=== PATIENT | male | born 1990 | race Caucasian/White ===

== ENCOUNTER 2021-09-02 11:01 | Outpatient (REF) | payer BC, SELFPAY | END 2021-09-02 11:02 | disposition home or self-care (01) | LOC: HO.BBR 11:01 | PROVIDERS: Visit Provider Internal Medicine | DX: Z13.89 Encounter for screening for other disorder (principal) ==

== ENCOUNTER 2024-03-28 11:18 | Outpatient (REF) | payer BC, SELFPAY ==
--- OUTSIDE RECORDS SUMMARY | 2024-03-28 12:00 | XMS_ITS | Continuity of Care Document ---
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 It does not include entries that were removed or entered in error. Problem Status Onset Date Problem Type Date of Resolution Comme nts Source upper respiratory infection Active Condition DoD visit for: services physical Active Condition DoD Allergies, Adverse Reactions, Alerts Combined list of allergies from Department of Defense and Veterans Affairs facilities. It does not include entries that were removed or entered in error. Substance Category Reaction Severity Reaction type Status Date Reported Comments Source No Known Allergies Drug allergy (disorder) active 2007 [facility] [address] Immunizations Combined list of available immunizations from the Department of Defense and Veterans Affairs facilities. Immunization Series Date Given Administered By Site Reaction Lot Number CVX Code Drug Manager Mail Status Comments Source influenza, injectable, quadrivalent- pf 2021 [id number] GlaxoSmithKli ne complet ed influenza , injectabl e, quadrival ent-pf 11/22/21 Given Ambulat ory Pharmac y influenza virus vaccine, inactivated 2020 [id number] Seqirus complet ed influenza virus vaccine, inactivat ed 12/14/20 Given Ambulat ory Pharmac y COVID Vaccine Moderna 2020 [id number] 207 complet ed COVID Vaccine Moderna 04/13/20 Given Ambulat ory Pharmac y COVID Vaccine Moderna 2020 [id number] 207 complet ed COVID Vaccine Moderna 03/15/20 Given Ambulat ory Pharmac y influenza, injectable, quadrivalent- pf 2019 [id number] 150 Seqirus complet ed influenza , injectabl e, quadrival ent-pf 12/16/19 Given Ambulat ory Pharmac y influenza, injectable, quadrivalent- pf 2018 [id number] 150 Seqirus complet ed influenza , injectabl e, quadrival ent-pf 01/25/19 Given Ambulat ory Pharmac y influenza, injectable, quadrivalent- pf 2017 [id number] Seqirus complet ed influenza , injectabl e, quadrival ent-pf 12/11/17 Given Ambulat ory Pharmac y tetanus, diphtheria, acellular pertu is 2017 [id number] 115 sanofi pasteur complet ed tetanus, diphtheri a, acellular pertussis 08/21/17 Given Ambulat ory Pharmac y influenza, seasonal, injectable 2017 [id number] 141 Seqirus complet ed influenza , seasonal, injectabl e 02/11/17 Given Ambulat ory Pharmac y influenza, seasonal, injectable-pf 2015 [id number] 140 Seqirus complet ed influenza , seasonal, injectabl e-pf 12/14/15 Given Ambulat ory Pharmac y influenza, seasonal, injectable-pf 2014 [id number] 140 CSL Behring complet ed influenza , seasonal, injectabl e-pf 12/14/14 Given Ambulat ory Pharmac y influenza, seasonal, injectable 2013 [id number] 141 CSL Behring complet ed influenza , seasonal, injectabl e 10/13/13 Given Ambulat ory Pharmac y influenza, seasonal, injectable 2012 [id number] 141 complet ed influenza , seasonal, injectabl e 01/14/13 Given Ambulat ory Pharmac y influenza, seasonal, injectable-pf 2011 [id number] 140 CSL Behring complet ed influenza , seasonal, injectabl e-pf 11/21/11 Given Ambulat ory Pharmac y influenza, seasonal, injectable-pf 2011 [id number] 140 CSL Behring complet ed influenza , seasonal, injectabl e-pf 02/18/11 Given Ambulat ory Pharmac y influenza virus vaccine, live 2009 [id number] Xylitol [employer] comple t ed influenza virus vaccine, live 12/14/09 Given Ambulat ory Pharmac y Novel influenza-H1N 1-09, injectable 2008 127 complet ed Novel influenza -R1L0-81, injectabl e 01/22/09 Given Ambulat ory Pharmac y hepatitis A-hepatitis B vaccine 2008 [id number] 3AA [facility] A-hepatit is B vaccine 03/16/08 Given Ambulat ory Pharmac y hepatitis A adult vaccine 2008 [id number] 1A 52 GlaxoSmithKli ne complet ed hepatitis A adult vaccine 03/16/08 Given Ambulat ory Pharmac y hepatitis A-hepatitis B vaccine 2008 [id number] 3AA 104 GlaxoSmithKli ne complet ed hepatitis A-hepatit is B vaccine 03/16/08 Given Ambulat ory Pharmac y influenza virus vaccine,split 2007 [id number] 2AA 15 GlaxoSmithKli ne complet ed influenza virus vaccine,s plit 01/14/08 Given Ambulat ory Pharmac y hepatitis A-hepatitis B vaccine 2007 [id number] 3AA 104 GlaxoSmithKli ne complet ed hepatitis A-hepatit is B vaccine 10/03/07 Given Ambulat ory Pharmac y hepatitis A-hepatitis B vaccine 2007 [id number] 3AA 104 GlaxoSmithKli ne complet ed hepatitis A-hepatit is B vaccine 10/03/07 Given Ambulat ory Pharmac y measles/mumps /rubella virus vaccine 2007 [id number] Nav[employer]is [employer] complet ed measles/m umps/rube lla virus vaccine 08/30/07 Given Ambulat ory Pharmac y hepatitis A-hepatitis B vaccine 2007 [id number] 3AA 104 GlaxoSmithKli ne complet ed hepatitis A-hepatit is B vaccine 08/30/07 Given Ambulat ory Pharmac y tuberculin purified protein derivative 2007 [id number] sanofi pasteur complet ed tuberculi n purified protein derivativ e 08/27/07 Given Ambulat ory Pharmac y meningococcal A,C,Y,W-135 (MCV4P) 2007 [id number] 114 sanofi pasteur complet ed meningoco ccal A,C,Y,W-1 35 (MCV4P) 08/24/07 Given Ambulat ory Pharmac y poliovirus vaccine, inactivated 2007 [id number] 10 sanofi pasteur complet ed polioviru s vaccine, inactivat ed 08/24/07 Given Ambulat ory Pharmac y tetanus, diphtheria, acellular pertu is 2007 [id number] 115 sanofi pasteur complet ed tetanus, diphtheri a, acellular pertussis 08/24/07 Given Ambulat ory Pharmac y Results Combined list of recent chemistry, hematology and other laboratory results from Department of Defense and Veterans Affairs, ranging from 15 months to all on record, depending upon the facility. Order Name Results Value Reference Range Date Interpretation Specimen Comments Source Infectiou s Disease HIV-1/O/2 Non-Reac tive 1 ( 4 9:00 AM) 12/07 N Interpretiv e Data: INTERPRETAT ION: This method is a screening procedure for the detection of HIV p24 Antigen and Antibodies to HIV-1, including Group O, and/or HIV-2. NON-REACTIV E: HIV-1 antigen and HIV-1 / HIV-2 antibodies were not detected. No laboratory evidence of HIV infection. A negative test result does not exclude the possibility of exposure to or infection with HIV. HIV antibodies and/or p24 antigen may be undetectabl e in some stages of the infection and in some clinical conditions. If acute HIV infection is suspected, consider submitting another specimen to a reference laboratory for HIV-1 RNA. SCREEN REACTIVE - CONFIRMATIO N TO FOLLOW: Possible presence of HIV-1antibo dies, HIV-2 antibodies and/or HIV-1 p24 antigen. Specimen will reflex to the confirmatio n testing that fulfills the Center for Disease Control and Prevention' s HIV diagnostic algorithm. Refer to [facility] Lab Guide for additional information : [email or web address] x Testing performed by José Miguel francisco [id number] [facility] Miscellan eous Sendouts Repository Sample Received ( 4 9:00 AM) 12/07 N [id number] Encounters Combined list of: 1) Encounters from Department of Veterans Affairs facilities going backup to the last 18 months, not all VA inpatient encounters are included; 2) Encounters from the Department of Defense facilities going backup to 280 months. Location Location Details Encounter Type Encounter Number Reason For Visit Attending Provider ADM Date DC Date Status Disposition Source [facility] [place] [address](Opt ometry Clinic [facility]) OUTPATIENT [id number] JOCE HILLMAN 08/28 Released w/o Limitations [facility] [place] [place] [address](O ptomet[facility]) [facility] [place] [address]([facility]) OUTPATIENT [id number] 1420- COLD SYMPTOM S (324/53 5) BELIA GUZMAN 09/14 Released with Work/Duty Limitations [facility] [place] [address] [facility] d) [id number] AMDS Care Not Rendered [id number] 11/11 Discharge Disposition: Home or Self Care [id number] AMDS [id number] AMDS Care Not Rendered [id number] 12/09 Discharge Disposition: Home or Self Care 8344R-4 39 AMDS [id number] AMDS Outpatient [id number] AMADEO CORREIA 12/09 Discharge Disposition: Home or Self Care 8344R-4 39 AMDS [id number] AMDS Between Visit [id number] 03/07 Discharge Disposition: Home or Self Care 8344R-4 39 AMDS [id number] AMDS Dental [id number] DUNG MYDOAN 03/10 Discharge Disposition: Home or Self Care 8344R-4 39 AMDS Procedures Combined list of: 1) Procedures from Department of Veterans Affairs facilities going back up to thelast 18 months, not all VA non-surgical procedures are included; 2) All procedures from the Department of Defense facilities. Procedure Procedure Type Code Date Perfomer Comments Sourc e No data available for this section Ambulatory Pharmacy Repair And Refitting Gla es (Not For Aphakia) Repair And Refitting Glasses (Not For Aphakia) [id number] 08/29/2007 JOCE HILLMAN [facility] Services Fitting Monofocal Except For Aphakia Spectacles Services Fitting Monofocal Except For Aphakia 36537 08/29/2007 JOCE HILLMAN [facility] Visual Function Screening Visual Function Screening [id number] 08/29/2007 JOCE HILLMAN [facility] FITTING OF SPECTACLES, EXCEPT FOR APHAKIA; MONOFOCAL 08/29/2007 DoD Social History Combined list of available smoking, tobacco, and other social history from Department of Defense and Veterans Affairs facilities. Social History Type Response Date Comment [facility] e Male 02/18/2022 Ambulatory Pha rmacy Sexual Orientation Ambula tory Pharmacy Gender identity Ambulator y Pharmacy This section is an empty soc ial history section. DoD Assessment and Plan Combined list of future care activities from Department of Defense and Veterans Affairs facilities (e.g., assessment and plan notes, appointments, orders, and referrals). Additional future care activities may be listed in the Plan of Care section. Result Assessment and Plan Date Source Assessment and Plan No data available for this section 03/28/2024 Ambulatory Pharmacy Functional Status Combined list of recent functional and cognitive assessments recorded at [facility] Defense [facility] ([facility]VA Functional Walsh Measurement (FIM) Scale: 1 = Total Assistance (Subject = 0% +), 2 = Maximal Assistance (Subject = 25% +), 3 = Moderate Assistance (Subject = 50% +), 4 = Minimal Assistance (Subject = 75% +), 5 = Supervision, 6 = Modified Walsh (Device), 7 = Complete Walsh (Timely, Safely). Assessment Date/Time Source Assessment Type Assessment Skill Assessment Score Assessment Details No data available for this section
--- OUTSIDE RECORDS SUMMARY | 2024-03-28 12:01 | XMS_ITS | Encounter Summary ---
Author Organization [facility] Address [address] [place] [address] Care Team Providers Care Digital Media Strategist Name Role Phone Yusuf Thakkar MD Primary Care Provider [phone] Reason for Referral * Imaging (Routine) - Pending Review Specialty Diagnoses / Procedures Referred By Tiffany farley Referred To Contact Radiology Diagnoses Hereditary hemochromatosis (CMS/HCC) Procedures MR Abdomen wo and w Contrast Juan David Mantilla MD [address] [place] [address] Phone: tel: fax: [address] [address] Phone: tel: Referral ID Status Reason Start Date Expiration Date V isits Requested Visits Authorized [id number] Pending Review 03/20/2024 03/20/2025 1 1 Reason for Visit * Reason Comments Follow-up Encounter Details Date Type Department Care Team (Latest Contact Info) Description 03/20/2024 11:00 AM EST Office Visit [facility] Hematology Oncology [address] [place] [phone] Juan David Mantilla MD [address] [place] [address] Hereditary hemochromatosis (CMS/HCC) (Primary Dx); Anxiety; Postural dizziness with presyncope Social History Tobacco Use Types Packs/Day Years Used Date Smoking Tobacco: Never Assessed Alcohol Use Standard Drinks/Week Comments Yes 0 (1 standard drink = 0.6 oz pur e alcohol) Sex and Gender Information Value Date Recorded Sex Assigned at Not on file Legal Sex Male 6:59 AM EST Gender Identity Not on file Sexual Orientation Not on file documented as of this encounter Last Filed Vital Signs Vital Sign Reading Time Taken Comments Blood Pressure 141/82 03/20/2024 11:08 AM EST Pulse 70 03/20/2024 11:08 AM EST Temperature 36.1 ??C (97 ??F) 03/20/2024 11:08 AM EST Respiratory Rate - - Oxygen Saturation 99% 03/20/2024 11:08 AM EST Inhaled Oxygen Concentration - - Weight 98 kg (216 lb) 03/20/2024 11:08 AM EST Height 170.2 cm (5' 7 ) 03/20/2024 11:08 AM EST Body Mass Index 33.83 03/20/2024 11:08 AM EST documented in this encounter Progress Notes * Subramony Subshashi-MD Macrina - 03/20/2024 11:00 AM EST CHIEF COMPLAINT: Chief Complaint Patient presents with Follow-up Hereditary hemochromatosis, homozygous C282Y, test results 07/24/2015 in the [facility] system. IDENTIFIER:Bruce Mccarty is a 33 y.o. male. HPI: The patient returns for follow up of Hereditary hemochromatosis, homozygous C282Y, For details of initial diagnosis and follow up until DEC 09, 2023- please refer to notes from prior [facility] EMR last note dated 08/19/2021 Patient was lost to follow-up during the last 2 years, due to his move from home, etc. 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 He had lab work performed which showed his ferritin at 378, and iron saturation 86%. At this time he does not have a PCP. He used to do phlebotomy at [place]. He once had a presyncopal episode and thereafter has half unit blood removed to 250 cc. He agrees to have lab work and resuming phlebotomy. Will plan due to 1 phlebotomy with a hemoglobin limit of 13--below 13, he will hold off phlebotomy The following is copied, reviewed and edited Cancer Staging No matching staging information was found for the patient. Oncology History No history exists. 2015 -- Mr Mccarty is a 24 -year-old gentleman who is here for evaluation of her elevated ferritin level and transaminitis. He carries a family history of hemachromatosis, his biological father being diagnosed with the same and quite ill with the disease. However he is not aware of the genetic status, biochemical evidence or treatment employed. His brother is also currently undergoing tests for the same. Interms of symptoms, he has some some stiffness in his small joints and chronic pain and bilateral knee and lower back related to injuries. He denies any skin color change he denies some shortness of breath palpitations or chest pressure he has not noticed any nausea or anorexia. I recommended phlebotomy to initiate removal of 450 mL of blood The following is copied and reviewed every 2 weeks for at least 6 cycles and recheck the CBC, iron level, ferritin afterward. Often after a period of induction, patients are able to maintain ferritin levels below 100 with phlebotomy every few months. I will refer the patient to blood bank for phlebotomies. I discussed with the patient regarding maintaining a normal diet, avoiding iron supplements. I also cautioned him against using partly cooked seafood as infections with vibrio have been described in patients with hemochromatosis who used uncooked or partly cooked seafood. He denies any risk factors for hepatitis C. 05/2016 -- Mr. Mccarty seems to be doing quite well clinically, continuing on twice monthly phlebotomies for hereditary hemochromatosis. Since October of last year, when his ferritin was in the 500s, he is continued on every 2 week phlebotomy. He missed the procedure for about 6 weeks when he was stationed in [place] state. 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 He has not noticed any worsening of shortness of breath. He denies any abdominal pain, early satiety or loss of appetite. He uses alcohol intermittently, socially. He is due for lab work and review of his ferritin and iron studies. He does not have any evidence of liver cirrhosis clinically. I discussed with the patient the need to moderate alcohol consumption. He is also attempting to lose weight and increase exercise. I will check his CBC, ferritin and iron studies. Based on the results, duration and interval of phlebotomy will be adjusted, goal ferritin will be at 50. He may need up to 4-6 phlebotomies per year once he reaches a stable state. If he has any iron deficiency, anemia or low ferritin, phlebotomy may be temporarily held. He will have lab work performed today and at 3 month intervals and return to clinic for follow-up in one year. 06/2017-- The patient had 4 phlebotomies during last year. One in the fall was delayed due to his travel withthe . This possibly explains the slight increase in ferritin and iron saturation at that time. He feels well without any new symptoms. Occasional panic/anxiety issues, working with his PCP regarding controlling it. PLAN-- 26-year-old man with history hemochromatosis, homozygous mutation, he will continue on phlebotomy every 3 months. 500 mL of blood to be removed each time. To hold phlebotomy if hemoglobin less than 11.5. Ferritin goal is 50- 100, which patient has been able to maintain mostly during the last year. He'll have lab work evaluation every 6 months and return to this clinic for annual follow-up. As hisinitial liver function tests and ultrasound were normal, no indication to have imaging monitoring repeatedly. 01/2020 -- Patient reports that he is feeling well. He was last seen in clinic in September 2018. He has not beendoing any phlebotomy for the last year. He wishes to keep his ferritin low, and also the saturationin the 25% range He is due for lab work, per his request, request to be sent over to [facility] lab Patient also had a syncopal event with full dose phlebotomy, therefore request that to 50 mL blood be removed if needed He may need treatment 3-4 times a year, if his ferritin increases to greater than 100 Goal would be to avoid anemia and another syncopal episode He has some joint pain, but reports that none are new 08/2021- Patient was last seen in clinic by telemetry audio visit in January 2020. He was advised to do labwork, but he was not able to. He has been off phlebotomy for more than 2 years. Patient reports that he is feeling well. He has gained some weight. Continues to work at the [employer]. Admits to alcohol use, but no smoking. Reviewed regarding risk of liver injury and hemochromatosis, along with alcohol use. Reviewed regarding the need for periodic lab work, and phlebotomy. He agrees He prefers to have half volume phlebotomy 250 mL removed each time, as he had an episode of syncopeand he researched some patient group advice. ROS: GENERAL: No malaise, significant weight loss or fever NECK: No lumps, goiter, pain or significant neck swelling RESPIRATORY: No cough, wheezing or shortness of breath CARDIOVASCULAR: No chest pain, leg swelling or palpitations GI: No abdominal discomfort, blood in stools or black stools MUSCULOSKELETAL: No joint pain or swelling, back pain, or muscle pain. HEMATOLOGY/LYMPHOLOGY No prolonged bleeding, easy bruisability or swollen nodes Other Systems review is non contributory PAST MEDICAL HISTORY: Active Ambulatory Problems Diagnosis Date Noted Anxiety 11/24/2016 Elevated CK 04/20/2018 Hereditary hemochromatosis (CMS/HCC) 10/23/2015 Knee pain, bilateral 03/09/2024 Low back pain 03/09/2024 Resolved Ambulatory Problems Diagnosis Date Noted No Resolved Ambulatory Problems No Additional Past Medical History SOCIAL HISTORY: Social History Tobacco Use Smoking status: Not on file Smokeless tobacco: Not on file Substance Use Topics Alcohol use: Yes FAMILY HISTORY: Family History Problem Relation Name Age of Onset Hypertension Mother Other (Other: hematochromatosis) Father Pt is adopted, biological father has severe disease Current Outpatient Medications: cetirizine (ZyrTEC) 10 mg tablet, Take 1 tablet (10 mg total) by mouth 1 (one) time each day., Disp: , Rfl: semaglutide (OZEMPIC) 0.25 mg or 0.5 mg(2 mg/1.5 mL) injection pen, Inject 0.25 mg under the skin every 7 (seven) days., Disp: , Rfl: No Known Allergies PHYSICAL EXAM: Visit Vitals BP (!) 141/82 (BP Location: Right arm, Patient Position: Sitting, BP Cuff Size: Large adult) Pulse 70 Temp 36.1 ??C (97 ??F) (Temporal) Ht 1.702 m (67 ) Wt 98 kg (216 lb) SpO2 99% BMI 33.83 kg/m?? Smoking Status Never Assessed BSA 2.09 m?? APPEARANCE: Alert and in no acute distress EYES: PERRL, conjunctiva pink and sclera are Normal without icterus ORAL CAVITY: No erythema or exudates NECK: Neck supple, no adenopathy, HEART: RRR with normal S1 and S2, no murmurs, no gallops, no JVD appreciated LUNG: clear to auscultation bilaterally Percussion note normal LYMPH NODES: No palpable superficial adenopathy ABDOMEN: Bowel sounds normoactive, no bruits, soft, non-tender, without organomegaly or palpable masses EXTREMITIES: Extremities warm and well perfused without clubbing, cyanosis, rash or edema NEURO: Oriented X 3, no focal weakness; sensation is normal LABS: Review of Lab results , interpreted Lab Results Component Value Date WBC 5.7 03/12/2024 HGB 16.3 03/12/2024 HCT 47.5 03/12/2024 MCV 94.1 03/12/2024 PLT 238 03/12/2024 Lab Results Component Value Date NA 137 03/12/2024 K 4.0 03/12/2024 CL 103 03/12/2024 CO2 31 03/12/2024 GLUCOSE 92 03/12/2024 BUN 13 03/12/2024 CREATININE 0.88 03/12/2024 CALCIUM 9.7 03/12/2024 PROT 6.9 03/12/2024 ALBUMIN 4.0 03/12/2024 BILITOT 0.7 03/12/2024 AST 38 03/12/2024 ALT 91 (H) 03/12/2024 ALKPHOS 71 03/12/2024 EGFR 115 03/12/2024 Review of Imaging, interpreted No image results found. Review of External Documentation Tests ordered - IMPRESSION: 1. Hereditary hemochromatosis (CMS/HCC) 2. Anxiety 3. Postural dizziness with presyncope PLAN: 33 -year-old gentleman, who was diagnosed with homozygous C282Y hereditary hemochromatosis in July 2015. He has strong family history in his father. His initial ferritin level was 883 further declined quite rapidly after initial induction phlebotomy. His last vitamin was in September 2018. His ferritin at that time was 31, with iron saturation 83%. He did not do any labs in 2019 Later set of labs from 2021 reviewed Thereafter lost to follow-up for 2 years We will request lab work today CBC with differential, iron/IBC, ferritin Lab results reviewed Ferritin in the normal range now, technically but above the recommended range for him which is 50-100 Iron saturation is quite high, no issues percentage of body stores of iron could represents iron deposition disease He will continue on phlebotomy every 2 months r, ordered to be transmitted to [place] blood bank for removal of 250 mL of blood each time, Monitor lab work closely and will follow-up in clinic later this year In the interim due to noncompliance I will also obtain an MRI liver to evaluate for any iron deposition disease at baseline I will contact her with results I did discuss with the patient the risk of reversible liver damage with iron deposition in the liver, and a small but nonzero risk of liver cirrhosis followed by hepatocellular carcinoma if he is unable to maintain the ferritin at recommended levels. Order sent over to [place] blood bank Clinic follow-up in January, patient is in agreement with this plan. Pain Control--no issues Health Care Proxy--no one Juan David Mantilla MD Cc Yusuf Thakkar MD documented in this encounter Plan of Treatment Upcoming Encounters Date Type Department Care Team (Late st Contact Info) Description 01/07/2025 11:00 AM EST Office Visit [facility] Hematology Oncology [address] [place] [address] Juan David Mantilla MD [address] [place] [phone] Scheduled Orders Name Type Priority Associated Diagnoses Orde r Schedule MR Abdomen wo and w Contrast Imaging Routine Hereditary hemochromatosis (CMS/HCC) Expected: 04/17/2024, Expires: 03/20/2025 documented as of this encounter Visit Diagnoses Diagnosis Hereditary hemochromatosis (CMS/HCC)- Primary Hereditary hemochromatosis Anxiety Anxiety state, unspecified Postural dizziness with presyncope documented in this encounter Discontinued Medications Medication Sig Discontinue Reason Start Date End Da te fluticasone propionate (FLONASE) 50 mcg/actuation nasal spray 2 Sprays by Nasal route daily. Discontinued by another clinician 04/29/2020 03/20/2024 omeprazole (PriLOSEC) [address] capsule Take 1 Cap by mouth daily. Patient Discharge 05/15/2018 03/20/2024 documented as of this encounter Historical Medications * This list may reflect changes made after this encounter. semaglutide (OZEMPIC) 0.25 mg or 0.5 mg(2 mg/1.5 mL) injection pen Inject 0.25 mg under the skin every 7 (seven) days. added in this encounter Care Teams Digital Media Strategist Relationship Specialty Start Date End Date Yusuf Thakkar MD [address] [place] [address] PCP - General Internal Medicine 06/26/15 documented as of this encounter
--- OUTSIDE RECORDS SUMMARY | 2024-03-28 12:01 | XMS_ITS | Encounter Summary ---
Author Organization [facility] Address [address] [place] [address] Care Team Providers Care Communications Writer Name Role Phone Yusuf Thakkar MD Primary Care Provider [phone] Encounter Details Date Type Department Care Team (Late st Contact Info) Description 03/08/2024 Telephone [facility] Hematology Oncology [address] [place] [address] Juan David Mantilla MD [address] [place] [address] Social History Tobacco Use Types Packs/Day Years Used Date Smoking Tobacco: Never Assessed Alcohol Use Standard Drinks/Week Comments Yes 0 (1 standard drink = 0.6 oz pur e alcohol) Sex and Gender Information Value Date Recorded Sex Assigned at Not on file Legal Sex Male 6:59 AM EST Gender Identity Not on file Sexual Orientation Not on file documented as of this encounter Progress Notes * Rachel Gusman MA - 03/08/2024 1:55 PM EST Spoke with Bruce. He agreed to complete labwork prior to appointment. Appointment scheduled for 03/20/24. Patient requested late morning appointment. * Leslie Bullard - 03/08/2024 10:32 AM EST Patient would like to re-establish care as he would like to start donating blood again and wants tomake sure everything is good beforehand. Please advise when to schedule. 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) Every 12 weeks for 2 Occurrences starting 03/08/2024 until 03/08/2025, 1 completed Ferritin Lab Routine HHT (hereditary hemorrhagic telangiectasia) ([facility]) Every 12 weeks for 2 Occurrences starting 03/08/2024 until 03/08/2025, 1 completed Iron and TIBC Lab Routine HHT (hereditary hemorrhagic telangiectasia) ([facility]) Every 12 weeks for 2 Occurrences starting 03/08/2024 until 03/08/2025, 1 completed documented as of this encounter Results * (ABNORMAL) Iron and TIBC (03/12/2024 11:32 AM EST) Iron 204(H) 50 - 160 mcg/dL LAB CHEMISTRY METHOD 03/12/2024 1:53 PM EST [facility] TIBC 238(L) 250 - 450 mcg/dL LAB CHEMISTRY METHOD 03/12/2024 1:53 PM EST [facility] Iron Saturation 86(H) 20 - 50 % LAB CHEMISTRY METHOD 03/12/2024 1:53 PM EST [facility] Blood Venous blood specimen / Unknown Venipuncture / Unknown 03/12/2024 11:32 AM EST 03/12/2024 1:32 PM EST us Juan David Mantilla MD LAB BLOOD ORDERABLE S Final Result Performing Organization Address [facility]/ZIP Co de Phone Number [facility] [address] [place] [address], * Ferritin (03/12/2024 11:32 AM EST) Pathologist [facility] Ferritin 358 26 - 388 ng/mL LAB CHEMISTRY METHOD 03/12/2024 1:53 PM EST [facility] Blood Venous blood specimen / Unknown Venipuncture / Unknown 03/12/2024 11:32 AM EST 03/12/2024 1:32 PM EST Juan David Mantilla MD LAB BLOOD ORDERABLE S Final Result Performing Organization Address [facility]/ZIP Co de Phone Number [facility] [address] [place] [address], [place] [phone] * (ABNORMAL) Comprehensive metabolic panel (03/12/2024 11:32 AM EST) [facility] Sodium 137 133 - 145 mmol/L LAB CHEMISTRY METHOD 03/12/2024 1:53 PM [facility] Potassium 4.0 3.5 - 5.5 mmol/L LAB CHEMISTRY METHOD 03/12/2024 1:53 PM [facility] Chloride 103 96 - 110 mmol/L LAB CHEMISTRY METHOD 03/12/2024 1:53 PM [facility] CO2 31 21 - 32 mmol/L LAB CHEMISTRY METHOD 03/12/2024 1:53 PM [facility] Anion Gap 3 3 - 11 LAB CHEMISTRY METHOD 03/12/2024 1:53 PM [facility] Glucose 92 70 - 100 mg/dL LAB CHEMISTRY METHOD 03/12/2024 1:53 PM [facility] BUN 13 5 - 25 mg/dL LAB CHEMISTRY METHOD 03/12/2024 1:53 PM [facility] Creatinine 0.88 0.70 - 1.30 mg/dL LAB CHEMISTRY METHOD 03/12/2024 1:53 PM [facility] eGFR 115 >=60 mL/min/1. 73m2 LAB CHEMISTRY METHOD 03/12/2024 1:53 PM [facility] Comment:Calculation based on the??Chronic Kidney Disease Epidemiology Collaboration (CKD-EPI) equation refit??without adjustment for race. BUN/Creatinine Ratio 14.8 LAB CHEMISTRY METHOD 03/12/2024 1:53 PM [facility] Calcium 9.7 8.5 - 10.5 mg/dL LAB CHEMISTRY METHOD 03/12/2024 1:53 PM [facility] AST (SGOT) 38 10 - 42 unit/L LAB CHEMISTRY METHOD 03/12/2024 1:53 PM [facility] ALT (SGPT) 91(H) 10 - 60 unit/L LAB CHEMISTRY METHOD 03/12/2024 1:53 PM [facility] Alkaline Phosphatase 71 42 - 121 unit/L LAB CHEMISTRY METHOD 03/12/2024 1:53 PM [facility] Total Protein 6.9 6.0 - 8.0 g/dL LAB CHEMISTRY METHOD 03/12/2024 1:53 PM [facility] Albumin 4.0 3.2 - 5.0 g/dL LAB CHEMISTRY METHOD 03/12/2024 1:53 PM [facility] Total Bilirubin 0.7 0.0 - 1.4 mg/dL LAB CHEMISTRY METHOD 03/12/2024 1:53 PM [facility] Blood Venous blood specimen / Unknown Venipuncture / Unknown 03/12/2024 11:32 AM EST 03/12/2024 1:32 PM EST Juan David Mantilla MD LAB BLOOD ORDERABLE S Final Result [facility] [address] [place] [address], documented in this encounter Visit Diagnoses Diagnosis 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
--- OUTSIDE RECORDS SUMMARY | 2024-03-28 12:01 | XMS_ITS | Clinical Summary ---
Author Organization [facility] Address [address] [place] [address] Care Team Providers Care Reimbursement Consultant Name Role Phone Yusuf Thakkar MD Primary Care Provider [phone] Allergies No known active allergies Medications No known medications Active Problems Problem Noted Date Diagnosed Date Transaminitis 08/19/2021 Anxiety 11/24/2016 Hereditary hemochromatosis 10/23/2015 Social History Tobacco Use Types Packs/Day Years Used Date Smoking Tobacco: Never Assessed Sex and Gender Information Value Date Recorded Sex Assigned at Not on file Gender Identity Not on file Sexual Orientation Not on file Job Start Date Occupation Industry Not on file Not on file Not on file Last Filed Vital Signs Vital Sign Reading Time Taken Comments Blood Pressure 142/80 08/19/2021 10:15 AM EDT Pulse 87 08/19/2021 10:15 AM EDT Temperature 37.3 ??C (99.1 ??F) 08/19/2021 1 0:15 AM EDT Respiratory Rate - - Oxygen Saturation 98% 08/19/2021 10: 15 AM EDT Inhaled Oxygen Concentration - - Weight 97.4 kg (214 lb 12.8 oz) 022 10:15 AM EDT Height 167.6 cm (5' 6 ) 08/19/2021 10:1 5 AM EDT Body Mass Index 34.67 08/19/2021 10:15 AM EDT Plan of Treatment Health Maintenance Due Date Last Done Comments Hepatitis C Screening 1988 COVID-19 Vaccine (#1) 03/18/1989 Depression Screening 2000 Preventative Health Evaluation 2006 Influenza Vaccine (#1) 2023 2, 12/16/2019, 01/25/2019, Additional history exists DTap / Tdap / Td (3 - Td or Tdap) 08/22/2027 08/21/2017, 08/24/2007 Hepatitis B Vaccines Completed 03/16/2008, 10/03/2007, 08/30/2007 Pneumococcal Vaccine Aged Out No long er eligible based on patient's age to complete this topic RSV Ped < 20 months Aged Out No longe r eligible based on patient's age to complete this topic Care Teams Reimbursement Consultant Relationship Specialty Start Date End Date Yusuf Thakkar MD [address] [place] [phone] PCP - General Internal Medicine 01/10/20
--- OUTSIDE RECORDS SUMMARY | 2024-03-28 12:01 | XMS_ITS | Clinical Summary ---
Author Organization [facility] Address [address] [place] [address] Phone Care Team Providers Care Lay Up Operator Name Role Phone Yusuf Thakkar MD Primary Care Provider [phone] Allergies No known active allergies Medications cetirizine (ZyrTEC) 10 mg tablet Take 1 tablet (10 mg total) by mouth 1 (one) time each day. 1 Active semaglutide (OZEMPIC) 0.25 mg or 0.5 mg(2 mg/1.5 mL) injection pen Inject 0.25 mg under the skin every 7 (seven) days. Active fluticasone propionate (FLONASE) 50 mcg/actuation nasal spray 2 Sprays by Nasal route daily. 1 03/20/19 25 Discontinue d(Discontin ued by another clinician) omeprazole (PriLOSEC) [address] capsule Take 1 Cap by mouth daily. 9 03/20/19 25 Discontinue d(Patient Discharge) Active Problems Problem Noted Date Diagnosed Date Knee pain, bilateral 03/09/2024 Low back pain 03/09/2024 Elevated CK 04/20/2018 Anxiety 11/24/2016 Hereditary hemochromatosis 10/23/2015 Encounters Date Type Department Care Team Description 03/20/2024 11:00 AM EST Office Visit [facility] Hematology Oncology [address] [place] [phone] Juan David Ortiz MD Hereditary hemochromatosis (CMS/HCC) (Primary Dx); Anxiety; Postural dizziness with presyncope 03/08/[address] [facility] Hematology Oncology [address] [place] [address] [place] [address] Juan David Ortiz MD from Last 3 Months Immunizations Name Administration Dates Next Due Moderna SARS-CoV-2 COVID-19, mRNA, LNP-S, preservative free 04/13/2020,03/15/2020 Surgical History Surgery Date Site/Laterality Comments FOOT SURGERY PROCEDURE: HISTORICAL FOOT SURGERY; COMMENT: fracture; had pins, then removed Medical History Medical History Date Comments Knee pain, bilateral DX:Knee frederick n, bilateral; COMMENT: about 1 yr, some trauma Low back pain DX:Low back pain ; COMMENT: about 2 yrs, injury at work? Family History Medical History Relation Name Comments Other: hematochromatosis Father Pt is adopted, biological father has severe disease Hypertension Mother Relation Name Status Comments Father Mother Social History Tobacco Use Types Packs/Day Years Used Date Smoking Tobacco: Never Assessed Alcohol Use Standard Drinks/Week Comments Yes 0 (1 standard drink = 0.6 oz pur e alcohol) Sex and Gender Information Value Date Recorded Sex Assigned at Not on file Legal Sex Male 6:59 AM EST Gender Identity Not on file Sexual Orientation Not on file Obstetrics History Last Filed Vital Signs Vital Sign Reading [...] Mass Index 33.83 03/20/2024 11:08 AM EST Plan of Treatment Upcoming Encounters Date Type Department Care Team (Late st Contact Info) Description 01/07/2025 11:00 AM EST Office Visit [facility] Hematology Oncology [address] [place] [phone] Juan David Mantilla MD [address] [place] [address] Health Maintenance Due Date Last Done Comments DTaP,Tdap,and Td Vaccines (1 - Tdap) 09/16/2007 Hepatitis B Vaccines (1 of 3 - 19+ 3-dose series) 09/16/2007 Cholesterol Screening (Lipid Panel) 01/16/2022 09/10/2016 Depression Screening 01/16/2022 HIV Screening 01/16/2022 Hepatitis C Screening 01/16/2022 Social Influencers of Health Screening 01/16/2022 COVID-19 Vaccine (3 - 2023-2 5 season) 2023 04/13/2020, 03/15/2020 Influenza Vaccine (#1) 2023 HIB Vaccines Aged Out No longer eligi ble based on patient's age to complete this topic HPV Vaccines Aged Out No longer eligi ble based on patient's age to complete this topic Hepatitis A Vaccines Aged Out No long er eligible based on patient's age to complete this topic IPV Vaccines Aged Out No longer eligi ble based on patient's age to complete this topic MMR Vaccines Aged Out No longer eligi ble based on patient's age to complete this topic Meningococcal ACWY Vaccine Aged Out N o longer eligible based on patient's age to complete this topic Meningococcal B Vacine Aged Out No lo nger eligible based on patient's age to complete this topic Pneumococcal Vaccine: Pediatrics (0 to 5 Years) and At-Risk Patients (6 to 64 Years) Aged Out No longer eligible b ased on patient's age to complete this topic RSV Immunization Patients Under 20 months Aged Out No longer eligible b ased on patient's age to complete this topic Varicella Vaccines Aged Out No longer eligible based on patient's age to complete this topic Procedures Procedure Name Priority Date/Time Associated Diagnosis Comments CBC WITH AUTO DIFFERENTIAL Routine 03/12/2024 11:32 AM EST HHT (hereditary hemorrhagic telangiectasia) (CMS/HCC) IRON AND TIBC Routine 03/12/2024 11:32 AM EST HHT (hereditary hemorrhagic telangiectasia) (CMS/HCC) FERRITIN Routine 03/12/2024 11:32 AM EST HHT (hereditary hemorrhagic telangiectasia) (CMS/HCC) CBC AND DIFFERENTIAL Routine 03/12/2024 11:32 AM EST HHT (hereditary hemorrhagic telangiectasia) (CMS/HCC) COMPREHENSIVE METABOLIC PANEL Routine 03/12/2024 11:32 AM EST HHT (hereditary hemorrhagic telangiectasia) (CMS/HCC) LIPID PANEL Routine 09/10/2016 from Last 3 Months or Most Recently Relevant to Health Maintenance Results * (ABNORMAL) CBC auto differential (03/12/2024 11:32 AM EST) [facility] WBC 5.7 4.8 - 10.8 K/mcL LAB HEMETOLOGY METHOD 03/12/2024 1:[address] [facility] RBC 5.10 4.50 - 5.50 M/mcL LAB HEMETOLOGY METHOD 03/12/2024 1:[address] [facility] Hemoglobin 16.3 13.5 - 17.5 g/dL LAB HEMETOLOGY METHOD 03/12/2024 1:[address] [facility] Hematocrit 47.5 42.0 - 54.0 % LAB HEMETOLOGY METHOD 03/12/2024 1:[address] [facility] MCV 94.1 79.0 - 98.0 FL LAB HEMETOLOGY METHOD 03/12/2024 1:[address] [facility] MCH 32.3(H) 27.0 - 32.0 pcg LAB HEMETOLOGY METHOD 03/12/2024 1:[address] [facility] MCHC 34.3 32.0 - 37.0 g/dL LAB HEMETOLOGY METHOD 03/12/2024 1:[address] [facility] RDW 12.3 11.0 - 15.0 % LAB HEMETOLOGY METHOD 03/12/2024 1:[address] [facility] Platelets 238 130 - 400 K/mcL LAB HEMETOLOGY METHOD 03/12/2024 1:[address] [facility] MPV 10.8 7.0 - 11.0 FL LAB HEMETOLOGY METHOD 03/12/2024 1:[address] [facility] NRBC 0.0 <1.0 % LAB HEMETOLOGY METHOD 03/12/2024 1:[address] [facility] NRBC Absolute 0.00 <0.10 K/mcL LAB HEMETOLOGY METHOD 03/12/2024 1:[address] [facility] Neutrophils Relative 52.2 % LAB HEMETOLOGY METHOD 03/12/2024 1:[address] [facility] Lymphocytes Relative 33.1 % LAB HEMETOLOGY METHOD 03/12/2024 1:[address] [facility] Monocytes Relative 9.7 % LAB HEMETOLOGY METHOD 03/12/2024 1:[address] [facility] Eosinophils Relative 3.9 % LAB HEMETOLOGY METHOD 03/12/2024 1:[address] [facility] Basophils Relative 0.7 % LAB HEMETOLOGY METHOD 03/12/2024 1:[address] [facility] Immature Granulocytes Relative 0.4 % LAB HEMETOLOGY METHOD 03/12/2024 1:[address] [facility] Neutrophils Absolute 2.95 1.50 - 7.00 K/mcL LAB HEMETOLOGY METHOD 03/12/2024 1:[address] [facility] Lymphocytes Absolute 1.87 1.00 - 5.00 K/mcL LAB HEMETOLOGY METHOD 03/12/2024 1:[address] [facility] Monocytes Absolute 0.55 0.20 - 1.00 K/mcL LAB HEMETOLOGY METHOD 03/12/2024 1:[address] [facility] Eosinophils Absolute 0.22 0.00 - 0.50 K/mcL LAB HEMETOLOGY METHOD 03/12/2024 1:58 PM EST [facility] Basophils Absolute 0.04 0.00 - 0.20 K/[facility] LAB HEMETOLOGY METHOD 03/12/2024 1:58 PM EST [facility] Immature Granulocytes Absolute 0.02 0.00 - 0.03 K/[facility] LAB HEMETOLOGY METHOD 03/12/2024 1:58 PM EST [facility] Blood Venous blood specimen / Unknown Venipuncture / Unknown 03/12/2024 11:32 AM EST 03/12/2024 1:31 PM EST us Juan David Mantilla MD LAB BLOOD ORDERABLE S Final Result Performing Organization Address [facility]/ZIP Co de Phone Number [facility] [address] [place] [address], [place] [phone] * (ABNORMAL) Iron and TIBC (03/12/2024 11:32 AM EST) Iron 204(H) 50 - 160 mcg/dL LAB CHEMISTRY METHOD 03/12/2024 1:53 PM EST [facility] TIBC 238(L) 250 - 450 mcg/dL LAB CHEMISTRY METHOD 03/12/2024 1:[address] [facility] Iron Saturation 86(H) 20 - 50 % LAB CHEMISTRY METHOD 03/12/2024 1:[address] [facility] Blood Venous blood specimen / Unknown Venipuncture / Unknown 03/12/2024 11:32 AM EST 03/12/2024 1:32 PM EST Juan David Mantilla MD LAB BLOOD ORDERABLE S Final Result Performing Organization Address [facility]/ZIP Co de Phone Number [facility] [address] [place] [address], [place] [phone] * Ferritin (03/12/2024 11:32 AM EST) Ferritin 358 26 - 388 ng/mL LAB CHEMISTRY METHOD 03/12/2024 1:53 PM EST [facility] Blood Venous blood specimen / Unknown Venipuncture / Unknown 03/12/2024 11:32 AM EST 03/12/2024 1:32 PM EST Juan David Mantilla MD LAB BLOOD ORDERABLE S Final Result [facility] [address] [place] [address], [place] [phone] * (ABNORMAL) Comprehensive metabolic panel (03/12/2024 11:32 AM EST) [facility] Sodium 137 133 - 145 mmol/L LAB CHEMISTRY METHOD 03/12/2024 1:[address] [facility] Potassium 4.0 3.5 - 5.5 mmol/L LAB CHEMISTRY METHOD 03/12/2024 1:[address] [facility] Chloride 103 96 - 110 mmol/L LAB CHEMISTRY METHOD 03/12/2024 1:[address] [facility] CO2 31 21 - 32 mmol/L LAB CHEMISTRY METHOD 03/12/2024 1:[address] [facility] Anion Gap 3 3 - 11 LAB CHEMISTRY METHOD 03/12/2024 1:[address] [facility] Glucose 92 70 - 100 mg/dL LAB CHEMISTRY METHOD 03/12/2024 1:[address] [facility] BUN 13 5 - 25 mg/dL LAB CHEMISTRY METHOD 03/12/2024 1:[address] [facility] Creatinine 0.88 0.70 - 1.30 mg/dL LAB CHEMISTRY METHOD 03/12/2024 1:[address] [facility] eGFR 115 >=60 mL/min/1. 73m2 LAB CHEMISTRY METHOD 03/12/2024 1:[address] [facility] Comment:Calculation based on the??Chronic Kidney Disease Epidemiology Collaboration (CKD-EPI) equation refit??without adjustment for race. BUN/Creatinine Ratio 14.8 LAB CHEMISTRY METHOD 03/12/2024 1:[address] [facility] Calcium 9.7 8.5 - 10.5 mg/dL LAB CHEMISTRY METHOD 03/12/2024 1:[address] [facility] AST (SGOT) 38 10 - 42 unit/L LAB CHEMISTRY METHOD 03/12/2024 1:[address] [facility] ALT (SGPT) 91(H) 10 - 60 unit/L LAB CHEMISTRY METHOD 03/12/2024 1:[address] [facility] Alkaline Phosphatase 71 42 - 121 unit/L LAB CHEMISTRY METHOD 03/12/2024 1:[address] [facility] Total Protein 6.9 6.0 - 8.0 g/dL LAB CHEMISTRY METHOD 03/12/2024 1:[address] [facility] Albumin 4.0 3.2 - 5.0 g/dL LAB CHEMISTRY METHOD 03/12/2024 1:[address] [facility] Total Bilirubin 0.7 0.0 - 1.4 mg/dL LAB CHEMISTRY METHOD 03/12/2024 1:[address] [facility] Blood Venous blood specimen / Unknown Venipuncture / Unknown 03/12/2024 11:32 AM EST 03/12/2024 1:32 PM EST us Subramvick Mantilla MD LAB BLOOD ORDERABLE S Final Result [facility] [address] [place] [address], * (ABNORMAL) Lipid panel (09/10/2016) LDL/HDL Ratio 4 0 - 4 Triglycerides 126 0 - 150 mg/dL Cholesterol 208(A) 0 - 200 mg/dL HDL 53 >=40 mg/dL LDL Cholesterol 130(A) 0 - 100 mg/dL Blood Venous blood specimen / Unknown Historical Provider LAB BLOOD ORDERABLES Romina l Result from Last 3 Months or Most Recently Relevant to Health Maintenance Insurance [facility] Care Teams Lay Up Operator Relationship Specialty Start Date End Date Yusuf Thakkar MD [address] [place] [phone] PCP - General Internal Medicine 06/26/15
== END 2024-03-28 11:19 | disposition home or self-care (01) ==
LOC: HO.BBR 11:18
PROVIDERS: Visit Provider Internal Medicine
DX: Z13.89 Encounter for screening for other disorder (principal)

== ENCOUNTER 2024-07-05 11:05 | Outpatient (REF) | payer OTHER, SELFPAY | END 2024-07-05 11:06 | disposition home or self-care (01) | LOC: HO.BBR 11:05 | PROVIDERS: PCP Internal Medicine; Visit Provider Internal Medicine | DX: Z13.89 Encounter for screening for other disorder (principal) ==

== ENCOUNTER 2024-08-24 10:03 | Outpatient (REF) | payer OTHER, SELFPAY ==
--- OUTSIDE RECORDS SUMMARY | 2024-08-24 10:26 | XMS_ITS | Clinical Summary ---
Author Organization [facility] Address [address] [place] [address] Phone Care Team Providers Care Bag Machine Set Up Operator Name Role Phone Yusuf Thakkar MD Primary Care Provider [phone] Allergies No known active allergies Medications cetirizine (ZyrTEC) 10 mg tablet Take 1 tablet (10 mg total) by mouth 1 (one) time each day. 04/29/2020 Active semaglutide (OZEMPIC) 0.25 mg or 0.5 mg(2 mg/1.5 mL) injection pen Inject 0.25 mg under the skin every 7 (seven) days. Active Active Problems Problem Noted Date Diagnosed Date Knee pain, bilateral 03/09/2024 Low back pain 03/09/2024 Elevated CK 04/20/2018 Anxiety 11/24/2016 Hereditary hemochromatosis ([facility] V24) 016 Encounters Date Type Department Care Team Description 07/18/2024 Telephone [facility] Hematology Oncology [address] [place] [address] Juan David Mantilla MD from Last 3 Months Immunizations Name [...] 70 03/20/2024 11:08 AM EST Temperature 36.1 C (97 F) 03/20/2024 11:08 AM EST Respiratory Rate - - Oxygen Saturation 99% 03/20/2024 11:08 AM EST Inhaled Oxygen Concentration - - Weight 95.3 kg (210 lb) 04/18/2024 3:41 PM EDT Height 170.2 cm (5' 7 ) 03/20/2024 11:08 AM EST Body Mass Index 32.89 03/20/2024 11:08 AM EST Plan of Treatment Upcoming Encounters Date Type Department Care Team (Late st Contact Info) Description 01/07/2025 11:00 AM EST Office Visit [facility] Hematology Oncology [address] [place] [phone] Juan David Mantilla MD [address] [place] [address] Health Maintenance Due Date Last Done Comments DTaP,Tdap,and Td Vaccines (1 - Tdap) 09/16/2007 Hepatitis B Vaccines (1 of 3 - 19+ 3-dose series) 09/16/2007 Cholesterol Screening (Lipid Panel) 01/16/2022 09/10/2016 Depression Screening 01/16/2022 HIV Screening 01/16/2022 Hepatitis C Screening 01/16/2022 Social Influencers of Health Screening 01/16/2022 COVID-19 Vaccine (3 - 2023-2 5 season) 2023 04/13/2020, 03/15/2020 Influenza Vaccine (#1) 2024 HIB Vaccines Aged Out No longer eligi [...] age to complete this topic Meningococcal B Vaccine Aged Out No l onger eligible based on patient's age to complete this topic Pneumococcal Vaccine: Pediatrics (0 to 5 Years) and At-Risk Patients (6 to 49 Years) Aged Out No longer eligible b ased on patient's age to complete this topic RSV Immunization Patients Under 20 months Aged Out No longer eligible b ased on patient's age to complete this topic Varicella Vaccines Aged Out No longer eligible based on patient's age to complete this topic Procedures Procedure Name Priority Date/Time Associated Diagnosis Comments LIPID PANEL Routine 09/10/2016 from Last 3 Months or Most Recently Relevant to Health Maintenance Results * (ABNORMAL) Lipid panel (09/10/2016) LDL/HDL Ratio 4 0 - 4 Triglycerides 126 0 - 150 mg/dL Cholesterol 208(A) 0 - 200 mg/dL HDL 53 >=40 mg/dL LDL Cholesterol 130(A) 0 - 100 mg/dL Blood Venous blood specimen / Unknown [facility] Provider LAB BLOOD ORDERABLES Romina l Result from Last 3 Months or Most Recently Relevant to Health Maintenance Insurance [facility] Care Teams Bag Machine Set Up Operator Relationship Specialty Start Date End Date Yusuf Thakkar MD [address] [place] [phone] PCP - General Internal Medicine 06/26/15
--- OUTSIDE RECORDS SUMMARY | 2024-08-24 10:26 | XMS_ITS ---
Author Name [facility] Organization Unknown Encounters Encounter Type Encounter Reason Primary Diagnosis Location Date Ambulatory [facility] 06/16 Care Team Organization Name Specialty Phone Email Start Date End Da te [facility] 06/16/2024
--- OUTSIDE RECORDS SUMMARY | 2024-08-24 10:26 | XMS_ITS | Patient Health Record ---
Author Organization [facility] Address [address] [facility] [address] [place] [address] Care Team Providers Care Fish Roe Technician Name Role Phone Unknown, Unknown Primary Care Provider Unavailab Daina Jerome Unavailable [phone] Allergies No Known Allergies Results Component Value Reference Range Notes XR Foot Left AP/LAT/OBL Reviewed date:06/17/2024 04:24:22 PM Interpretation:Negative Performing Lab: Notes/Report: NAME: MAI SHOEMAKER , : 1990, ACCESSION NUMBER: [id number] HISTORY: Pain/swelling at first MCP joint status post injury TECHNIQUE: 3 views are evaluated COMPARISON: None available. FINDINGS: No acute osseous or articular abnormality. No soft tissue swelling. No retained radiopaque foreign bodies. IMPRESSION: No acute osseous or articular abnormality. Electronically Signed by: [facility] Report NAME: MAI SHOEMAKER MR N: [id number], : 1990, ACCESSION NUMBER: [id number] Report HISTORY: Pain/swelli ng at first MCP joint status post injury Report TECHNIQUE: 3 views a re evaluated Report COMPARISON: None available. Report FINDINGS: Report No acute osseous or articular abnormality. No soft tissue swelling. No retained radiopaque Report foreign bodies. Report IMPRESSION: Report No acute osseous or articular abnormality. Reason For Referral No Information Social History Tobacco Use: Social History Observation Description Date Details (start date - stop date) Never Smoker NA - NA Tobacco use other than smoking: Question Answer Notes Are you an other tobacco user? No Smoking Cessation Materials Question Answer Notes Patient counseled on the dangers of smoking and urged to quit: 06/16/2024 Tobacco Control (Standard) Question Answer Notes Tobacco use: Nonsmoker Vital Signs Heart Rate 81 /min 06/16/2024 Temperature 97.5 degrees Fahrenheit 06/16/2024 Respiratory Rate 16 /min 06/16/2024 Oximetry 95 % 06/16/2024 Blood pressure diastolic 90 mm Hg 06/16/2024 Weight-kg 94.89 kg 06/16/2024 Height 67 in 06/16/2024 Blood pressure systolic 144 mm Hg 06/16/2024 Weight 209.2 lbs 06/16/2024 BMI 32.76 kg/m2 06/16/2024 Procedures Procedure Date Ordered Date Performed Result Body Sit e Strapping of ankle and/or foot 06/16/2024 06/16/2024 Stabl e Encounters Encounter Location Date Provider Diagnosis [facility] [address] [facility] [address] [place] [address] 06/16/2024 Diana Roman Left foot pain M79.672 and Foot injury, left, initial encounter S99.922A Assessments Encounter Date Diagnosis (ICD Code) Assessment Notes Treatment Notes Treatment Clinical Notes Section Notes 06/16/2024 Left foot pain (ICD-10 - M79.672) Keep your leg elevated when sitting or lying down. This is very important during the first 48 hours to reduce swelling. Stay off the injured foot as much as possible until you can walk on it without pain. Use a sandal or any shoe that does not put pressure on the injured area until the swelling and pain go away. If using a sandal, be careful not to hit your foot against anything, since another injury could make the sprain worse. Apply an ice pack over the injured area for 15 to 20 minutes every 3 to 6 hours. You should do this for the first 24 to 48 hours. You can make an ice pack by filling a plastic bag that seals at the top with ice cubes and then wrapping it with a thin towel. Continue to use ice packs for relief of pain and swelling as needed. As the ice melts, avoid getting any wrap, splint, or cast wet. After 48 hours, apply heat from a warm shower or bath for 20 minutes several times daily. Alternating ice and heat may also be helpful. 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 f/u with ortho if no improvement. 06/16/2024 Other We discussed your right foot pain and swelling: - You reported injuring your foot after falling onto a roller at work. The pain is primarily on the top of your foot and worsens when bending it upward. - An X-ray of your foot was performed during the visit, which showed no fractures. There is soft tissue swelling present. - You are advised to remain on light duty at work for the next few days to allow your foot to heal. - If your pain or swelling worsens or does not improve, please contact our office for further evaluation. Access your visit summary and after-visit care instructions via our online Patient Portal by visiting [email or web address]. Smoking is exceedingly harmful to your heart and lung health. Please call 7-703-XUXJ-NOW or visit [email or web address] to help quit, and improve your alf health. The home is the most common place where children and non-smoking adults are exposed to secondhand smoke. Secondhand smoke causes increased risk of asthma, certain cancers or infections, and heart disease in children and adults. Please follow up with your primary care provider if any other concerns: If you do not have a primary care provider you can obtain one by: a) Calling [phone] or b) Going to [email or web address] Plan Of Treatment No Information Insurance Providers Payer Name Payer Address Payer Phone Subscriber Number Group Number Insured Name Patient Relationship to Insured Coverage Start Date Coverage End Date [facility] (AFTER 02/2024) [address] [place] [address] [id number] MAI SHOEMAKER Self - patient is the insured
--- OUTSIDE RECORDS SUMMARY | 2024-08-24 10:26 | XMS_ITS | Clinical Summary ---
Author Organization [facility] Address [address] [place] [address] Care Team Providers Care On Call Name Role Phone Yusuf Thakkar MD Primary Care Provider [phone] Allergies No known active allergies Medications No [...] 87 08/19/2021 10:15 AM EDT Temperature 37.3 C (99.1 F) 08/19/2021 10:15 AM EDT Respiratory Rate - - Oxygen [...] Preventative Health Evaluation 2006 Influenza Vaccine (#1) 2024 , 12/16/2019, 01/25/2019, Additional history exists DTap / Tdap / Td (3 - Td or Tdap) 08/22/2027 08/21/2017, 08/24/2007 Hepatitis B Vaccines Completed 03/16/2008, 10/03/2007, 08/30/2007 Pneumococcal Vaccine Aged Out No long er eligible based on patient's age to complete this topic RSV Ped < 20 months Aged Out No longe r eligible based on patient's age to complete this topic Care Teams On Call Relationship Specialty Start Date End Date Yusuf Thakkar MD [address] [place] [phone] PCP - General Internal Medicine 01/10/20
== END 2024-08-24 10:04 | disposition home or self-care (01) ==
LOC: HO.BBR 10:03
PROVIDERS: PCP Internal Medicine; Visit Provider Internal Medicine
DX: Z13.89 Encounter for screening for other disorder (principal)

== ENCOUNTER 2024-11-22 14:00 | Outpatient (REF) | payer OTHER, SELFPAY ==
--- OUTSIDE RECORDS SUMMARY | 2024-11-22 17:46 | XMS_ITS | Patient Health Record ---
Author Organization [facility] Address [address] [facility] [address] [place] [address] Care Team Providers Care Senior Supply Chain Analyst Name Role Phone Unknown, Unknown Primary Care Provider Unavailab Diana Jerome Unavailable [phone] Allergies No Known Allergies Results Component Value Reference Range Notes XR Foot Left AP/LAT/OBL Reviewed date:06/17/2024 04:24:22 PM Interpretation:Negative Performing Lab: Notes/Report: NAME: MAI SHOEMAKER , : 1990, ACCESSION NUMBER: [id number] HISTORY: Pain/swelling at first MCP joint status post injury TECHNIQUE: 3 views are evaluated COMPARISON: None available. FINDINGS: No acute osseous or articular abnormality. No soft tissue swelling. No retained radiopaque foreign bodies. IMPRESSION: No acute osseous or articular abnormality. Electronically Signed by: [facility]ge Report NAME: MAI SHOEMAKER MR N: [id number], : 1990, ACCESSION NUMBER: [id number] Report HISTORY: Pain/swelli ng at first MCP [...] e Encounters Encounter Location Date Provider Diagnosis [facility] [address] [facility] [address] [place] [address] 06/16/2024 Diana Roman Left foot pain M79.672 [...] may also be helpful. You may use qgfh-kme-hqcimex pain medicine to control pain, 06/16/2024 Foot [...] via our online Patient Portal by visiting [email or web address]. Smoking is exceedingly harmful to your heart and lung health. Please call [phone]-JHUE-NOW or visit [email or web address] to help quit, and improve your residential health. The home is the most common [...] you can obtain one by: a) Calling [phone] or b) Going to [email or web address] Plan Of Treatment No Information Insurance Providers Payer Name Payer Address Payer Phone Subscriber Number Group Number Insured Name Patient Relationship to Insured Coverage Start Date Coverage End Date [facility] (AFTER 02/2024) [address] [place] [address] [id number] MAI SHOEMAKER Self - patient is the insured
--- OUTSIDE RECORDS SUMMARY | 2024-11-22 17:46 | XMS_ITS | Clinical Summary ---
Author Organization [facility] at [facility] Address [address] [place] [address] Care Team Providers Care Fitness Manager Name Role Phone Yusuf Thakkar MD Primary Care Provider [phone] Allergies No known active allergies Medications No [...] age to complete this topic Care Teams Fitness Manager Relationship Specialty Start Date End Date Yusuf Thakkar MD [address] [place] [address] PCP - General Internal Medicine 01/10/20
--- OUTSIDE RECORDS SUMMARY | 2024-11-22 17:46 | XMS_ITS | Clinical Summary ---
Author Organization [facility] Address [address] [place] [phone] Phone Care Team Providers Care Wine Pasteurizer Name Role Phone Yusuf Thakkar MD Primary Care Provider [phone] Allergies No known active allergies Medications cetirizine [...] Elevated CK 04/20/2018 Anxiety 11/24/2016 Hereditary hemochromatosis ([facility] V24) 016 Immunizations Immunization Administration Dates Next Due Moderna SARS-CoV-2 COVID-19, [...] Description 01/07/2025 11:00 AM EST Office Visit [facility] Hematology Oncology [address] [place] [address] Juan David Mantilla MD [address] [place] [address] Health Maintenance Due Date Last Done Comments DTaP,Tdap,and Td Vaccines (1 - Tdap) 09/16/2007 Hepatitis B Vaccines (1 of 3 - 19+ 3-dose series) 09/16/2007 HPV Vaccines (1 - 3-dose SCD M series) 09/16/2015 Cholesterol Screening (Lipid Panel) 01/16/2022 09/10/2016 HIV Screening 01/16/2022 Hepatitis C Screening 01/16/2022 Social Influencers of Health Screening 01/16/2022 Depression Screening 02/08/2024 COVID-19 Vaccine (3 - 2024-2 6 season) 2024 04/13/2020, 03/15/2020 Influenza Vaccine (#1) 2024 RSV Immunization Adult Patients (1 - 1-dose 75+ series) 09/16/2063 HIB Vaccines Aged Out No longer eligi [...] mg/dL Blood Venous blood specimen / Unknown [facility] Provider LAB BLOOD ORDERABLES Romina l Result from Last 3 Months or Most Recently Relevant to Health Maintenance Insurance [facility] Care Teams Wine Pasteurizer Relationship Specialty Start Date End Date Yusuf Thakkar MD [id number] [place] [address] PCP - General Internal Medicine 06/26/15
== END 2024-11-22 14:01 | disposition home or self-care (01) ==
LOC: HO.BBR 14:00
PROVIDERS: PCP Internal Medicine; Visit Provider Internal Medicine
DX: Z13.89 Encounter for screening for other disorder (principal)